=== PATIENT | female | born 1975 | race Caucasian/White ===

== ENCOUNTER 2020-09-21 15:25 | Emergency (ER) | payer OTHER ==
[~2020-09-21] VITALS: Ht 162.6 cm; Wt 54.0 kg
[2020-09-21] MEDS ORDERED: SODIUM CHLORIDE 0.9% 1000ML BAG (SEPSIS BOLUS) IV ONE (15:45)
[2020-09-21 16:06] LABS: BASOPHILS % 0.6 % (0.0-2.0); EOSINOPHILS % 0.9 % (0.0-5.0); HEMATOCRIT. 42.4 % (36.0-48.0); HEMOGLOBIN. 14.8 g/dL (12.0-16.0); LYMPHOCYTES % 20.1 % (20.0-50.0); MEAN CORPUSCULAR HEMOGLOBIN 29.9 pg (28.0-32.0); MEAN CORPUSCULAR VOLUME 85.9 fL (81.0-99.0); MEAN PLATELET VOLUME 10.4 fl (7.4-10.4); NEUTROPHILS % 75.4 % (40.0-76.0); PLATELET 264 x1000/uL (130-400); RED BLOOD CELL COUNT 4.93 mill/uL (4.2-5.4); RED CELL DISTRIBUTION WIDTH 14.3 % (11.6-14.6)
[2020-09-21 16:14] LABS: CHLORIDE 105 mEq/L (98-107)
[2020-09-21 16:18] LABS: ETHANOL BLOOD < 10 mg/dL
[2020-09-21 16:24] LABS: HCG SCREEN NEGATIVE
[2020-09-21 21:05] LABS: DIGOXIN < 0.1 ng/mL (0.9-2.0)
[2020-09-21 23:05] VITALS: BP 108/56
== END 2020-09-21 23:05 | disposition home or self-care (01) ==
LOC: ER 15:25
DX: E86.0 Dehydration (principal); T65.91XA Toxic effect of unspecified substance, accidental (unintentional), initial encounter; R42 Dizziness and giddiness; Y92.9 Unspecified place or not applicable
CPT/HCPCS: 36415; 80053; 80162; 80320; 83605; 84484; 84703; 85025; 87040; 99285; J7030; G0480